=== PATIENT | male | born 1940 | race Caucasian/White ===

== ENCOUNTER 2017-11-30 11:30 | Inpatient (IN) | payer OTHER ==
[~2017-11-30] VITALS: Ht 170.2 cm; Wt 87.1 kg
[~2017-11-30 11:30] MED LIST: AMARYL2 MG PO; AMARYL4 MG PO; ASPIR 8181 M1 PO; AUGMENTIN 875875 MG PO; COREG25 MG PO; FLOMAX0.4 MG PO; FOLIC ACID1 MG PO; GLIMEPIRIDE4 MG PO; LASIX 40 MG TAB40 M2 PO; LEVAQUIN 500 M500 M2 PO; LISINOPRIL10 MG PO; METFORMIN HCL500 MG PO; OMEGA-31000 M1 PO; OXYBUTYNIN 5 MG5 M2 PO; TYLENOL325 MG PO; VITAMIN B-12500 MCG PO; XARELTO15 MG PO; ZOCOR20 MG PO; [UNRECOGNIZED DRUG - OTHER]; [UNRECOGNIZED DRUG - OTHER] MC
[2017-11-30 11:33] VITALS: BP 169/88
[2017-11-30 12:12] LABS: HEMATOCRIT 37.1 % (42.0-52.0); HEMOGLOBIN 11.9 gm/dL (14.0-18.0); MCH 30.4 pg (26.0-34.0); MCHC 32.2 g/dL (28.0-37.0); MCV 94.7 fL (80.0-100.0); MPV 7.6 fl. (7.2-11.1); NUCLEATED RBCS 0 /100WBC; PLATELET COUNT* 401 thou/uL (150-400); RBC 3.92 mil/uL (4.50-6.00); RDW-CV 13.5 % (10.5-14.5); WBC 9.4 thou/uL (4.0-11.0)
[2017-11-30 12:21] LABS: ANION GAP 11 mmol/L (7-16); BUN 28 mg/dL (7-18); CALCIUM 8.8 mg/dL (8.5-10.1); CHLORIDE 104 mmol/L (98-107); CO2 26 mmol/L (21-32); CREATININE 2.3 mg/dL (0.6-1.3); GLUCOSE 338 mg/dL (70-99); POTASSIUM 3.6 mmol/L (3.5-5.1); SODIUM 141 mmol/L (136-145)
[2017-11-30 12:31] LABS: ALBUMIN 2.3 g/dL (3.4-5.0); ALKALINE PHOSPHATASE 84 U/L (46-116); SGOT 15 U/L (15-37); SGPT 18 U/L (30-65); TOTAL BILIRUBIN 0.5 mg/dL (<0.1-1.0); TOTAL PROTEIN 7.1 g/dL (6.4-8.2); TROPONIN-I LEVEL <0.06 ng/mL (<0.06)
[2017-11-30 12:33] LABS: ABSOLUTE EOSINOPHILS 0.2 thou/uL (0.0-0.7); ABSOLUTE LYMPHOCYTES 1.1 thou/uL (0.8-5.3); ABSOLUTE MONOCYTES 0.3 thou/uL (0.0-1.2); ABSOLUTE NEUTROPHILS 7.8 thou/uL (1.6-8.1); PLATELET ESTIMATE INCREASED
[2017-11-30 12:34] LABS: ANISOCYTOSIS 1+; POIKILOCYTOSIS 1+
--- NOTE | 2017-11-30 14:47 | EKG ---
[place] [address] ELECTROCARDIOGRAM REPORT Name: TREVOR DRAKE Room: [place] [address] ADM IN .R.#: [id number] Admission: 11/30/17 Attend Phys: Bautista Reynolds MD Discharge: Date of : 38 Report #: [id number] THIS REPORT FOR: //name// [facility] ED Test Date: 2017-11-30 Test Time: 11:46:23 Pat Name: TREVOR DRAKE Department: Room: [facility] Gender: Hand Candy Cutter: Mami CARRILLO : 1940 Requested By: Jacqueline Gallardo Order Number: [id number] MD: Roger Godoy Measurements Intervals [place] Rate: 77 P: 0 CO: 37 QRS: 20 QRSD: 89 T: 74 QT: 423 QTc: 479 Interpretive Statements Atrial fibrillation Borderline prolonged QT interval Compared to ECG 09/11/2016 23:12:03 Ventricular premature complex(es) no longer present Aberrant conduction of supraventricular beat(s) no longer present ST (T wave) deviation no longer present Electronically Signed On 11-30-2017 14:47:26 AUTOMATIC MOLD SANDER by Roger Godoy [email or web address] <ELECTRONICALLY SIGNED> By: Roger Godoy MD, FACC 11/30/17 1447 1146 [id number] Roger Godoy MD, FAC /EPI
[2017-11-30 17:09] VITALS: BP 198/89
[2017-11-30 17:30] VITALS: BP 158/88
--- NOTE | 2017-11-30 21:56 | NUR ---
PT ARRIVED FROM E.D. AT 1730. PT IN BED, BED IN LOW AND LOCKED POSITION, FALL PRECAUTIONS IN PLACE. PT HIGH FALL RISK. PT BR[facility] [place]/T INCREASED ALTERED MENTAL STATUS, FORGETFULNESS, CONFUSION WITHIN THE LAST THREE DAYS. PT TALKATIVE BUT HAVING DIFFICULTY FALLOWING CONVERSATION, VERY FORGETFUL AND OCC. AGGITATED, IMPULSIVE. 4 SIDERAILS UP FOR PT SAFETY. A&O X2-3, SELF/HOSPITAL BUT FORGOT WHERE HE WAS AND THAT HIS SONS HAD BEEN THERE, THINKING HE WAS AT HOME AND WANTING HIS CAR KEYS. PERRLA, SKIN INTACT WITH SOME OLD SCABS ON RIGHT HAND, SCATTERED BRUISING, NO EDEMA. LUNGS MILD SCATTERED WHEEZES TO DIMINISHED. ABD SOFT, NON TENDER. PT COMPLETELY INCONTINENT OF URINE R/T NERVE DAMAGE TO BLADDER, NO SENSATION OF HAVING TO URINATE OR PROCESS OF URINATING. RECENT CHANGE FOR PT BEING INCONTINENT OF BOWEL. FREQUENT PAD CHANGES REQUIRED. PT UNSTEADY, WEAK, UP WITH ONE TO TWO ASSIST WITH WALKER. HX OF AFIB BUT PT PCP D/C'D ALL STATINS, BETA BLOCKERS, LASIX, BLOOD SUGAR MEDS, SEE D/C OF RECONCILED MEDS. PT ONLY TAKES AN 81 MG ASPIRIN 1X PER DAY AT THIS TIME ACCORDING TO PT AND HIS TWO SONS AND DAUGHTER IN LAW. BLOOD SUGARS UPON ENTERING ED OVER 300, LOW SLIDING SCALE INSULIN ORDERED. PT TO BE CONSIDERED FOR TELE MONITORING R/T AFIB DX. REPORT TO HAM MARKER FOR CONTINUED CARES. PT REQUIRES ALOT OF ATTENTION AND MONITORING. FAMILY WANTS TO MOVE PT TO SNF FOR INCREASED CARES, CONSULT FOR CASE MANAGEMENT MADE.
[2017-12-01 00:46] VITALS: BP 177/88
--- NOTE | 2017-12-01 03:39 | NUR ---
ASSUMED CARE @ 1955-11/30-SUNDAY.AWAKE IN BED WATCHING TV.HOB UP.IV INFUSING LEFT FOREARM.BED ALARM ON ALREADY @ 1954.URINE-FOUL SMEELING & ROOM ALSO SMELLS FOUL.INC URINE.COMPLETE BED CHANGE BY AUTOMATIC LATHE OPERATOR X1.TURNS SELF @ NIGHT.SON HERE @ 2140 & SAT W/ PATIENT UNTIL MIDNIGHT.PATIENT SLEEPING @ 2330.BEFORE SON CAME-PT CONSTANTLY WASTE/MATERIALS EXCHANGE SPECIALIST LIGHT ASKING WHERE HIS THINGS ARE.ON HOURLY ROUNDS.AUTOMATIC LATHE OPERATOR DOING ODD HOUR ROUNDS.
[2017-12-01 04:46] LABS: ABSOLUTE BASOPHILS 0.1 thou/uL (0.0-0.2); ABSOLUTE EOSINOPHILS 0.3 thou/uL (0.0-0.7); ABSOLUTE LYMPHOCYTES 1.1 thou/uL (0.8-5.3); ABSOLUTE MONOCYTES 0.6 thou/uL (0.0-1.2); ABSOLUTE NEUTROPHILS 6.8 thou/uL (1.6-8.1); BASOPHILS 0.6 %; EOSINOPHILS 3.8 %; HEMATOCRIT 31.4 % (42.0-52.0); HEMOGLOBIN 10.7 gm/dL (14.0-18.0); LYMPHOCYTES 12.8 %; MCH 31.4 pg (26.0-34.0); MCV 92.5 fL (80.0-100.0); MONOCYTES 6.9 %; MPV 7.8 fl. (7.2-11.1); NUCLEATED RBCS 0 /100WBC; PLATELET COUNT* 377 thou/uL (150-400); POLYS 75.9 %; RBC 3.39 mil/uL (4.50-6.00); RDW-CV 13.7 % (10.5-14.5); WBC 8.9 thou/uL (4.0-11.0)
[2017-12-01 04:59] LABS: CALCIUM 8.3 mg/dL (8.5-10.1); CREATININE 1.9 mg/dL (0.6-1.3); POTASSIUM 3.4 mmol/L (3.5-5.1)
--- NOTE | 2017-12-01 07:35 | NUR ---
SLEEPING SINCE 2329.AWAKENED ONLY TO CHECK IF INC.URINE.INC URINE X3.ARTURO CARE DONE X3 ALSO.URINE-FOUL ODOR.SON BACK @ 0630.TURNS SELF @ NIGHT.
[2017-12-01 08:00] VITALS: BP 174/111
[2017-12-01 16:11] LABS: URINE BILIRUBIN NEGATIVE (Negative); URINE BLOOD NEGATIVE (Negative); URINE CLARITY CLOUDY; URINE COLOR YELLOW; URINE GLUCOSE-RANDOM NEGATIVE (Negative); URINE KETONES TRACE (Negative); URINE NITRITE-REFLEX NEGATIVE (Negative); URINE PROTEIN 3+ (Negative)
[2017-12-01 16:13] LABS: URINE LEUKOCYTES-REFLEX 2+ (Negative)
[2017-12-01 16:17] LABS: AMP/METHAMP Negative (Negative); BARBITURATES Negative (Negative); BENZODIAZEPINES Negative (Negative); COCAINE Negative (Negative); METHADONE Negative (Negative); OPIATES Negative (Negative); PCP Negative (Negative); THC Negative (Negative)
[2017-12-01 16:26] LABS: BACTERIA-REFLEX >30 Many /HPF (None Seen); CASTS None Seen /LPF (None Seen); CRYSTALS None Seen /LPF (None Seen); SQUAMOUS >10 Many /LPF (0-3)
[2017-12-01 16:27] LABS: URINE RBC 0-2 Rare /HPF (0-2); URINE WBC-REFLEX >25 Many /HPF (0-5)
[2017-12-01 16:48] VITALS: BP 147/79
--- NOTE | 2017-12-01 18:53 | NUR ---
DAY 2 OF STAY. PATIENT OBSTINANT TO MOST CARES AND ASSESSMENTS, INTERMITTENTLY CONFUSED, AT TIMES DIFFICULT TO REDIRECT. DENIES DISCOMFORT, EXT. ASSIST WITH ALL ADL, BED MOBILITY, TRANSFERS. AMB W/ UNSTEADY GAIT, UNABLE TO TAKE STEPS WITHOUT SOMETHING TO HOLD ON TO. CONT TO BE INCONTINENT OF BLADDER, UNABLE TO REPORT NEED TO VOID. BM THIS SHIFT, URINE SAMPLE SENT FOR CULTURE. KODY DIET WELL, BLOOD GLUCOSE MAINTAINED WELL. EEG COMPLETED TODAY, MRI SCHED FOR 12/03, CONSULT UROLOGY FOR INCONTINENCE IN PROCESS. CALL LIGHT IN REACH, CONT POC.
[2017-12-01 20:00] VITALS: BP 150/69
[2017-12-02 04:37] LABS: ABSOLUTE BASOPHILS 0.1 thou/uL (0.0-0.2); ABSOLUTE EOSINOPHILS 0.3 thou/uL (0.0-0.7); ABSOLUTE LYMPHOCYTES 1.3 thou/uL (0.8-5.3); ABSOLUTE MONOCYTES 0.5 thou/uL (0.0-1.2); ABSOLUTE NEUTROPHILS 6.6 thou/uL (1.6-8.1); BASOPHILS 0.7 %; HEMATOCRIT 32.8 % (42.0-52.0); HEMOGLOBIN 10.9 gm/dL (14.0-18.0); LYMPHOCYTES 14.6 %; MCH 31.1 pg (26.0-34.0); MCHC 33.3 g/dL (28.0-37.0); MCV 93.4 fL (80.0-100.0); MONOCYTES 5.6 %; MPV 7.7 fl. (7.2-11.1); NUCLEATED RBCS 0 /100WBC; PLATELET COUNT* 379 thou/uL (150-400); POLYS 76.1 %; RBC 3.51 mil/uL (4.50-6.00); RDW-CV 13.5 % (10.5-14.5); WBC 8.7 thou/uL (4.0-11.0)
[2017-12-02 04:47] LABS: CALCIUM 8.1 mg/dL (8.5-10.1); POTASSIUM 3.5 mmol/L (3.5-5.1)
--- NOTE | 2017-12-02 05:14 | NUR ---
PT AWAKE ON AND OFF THIS SHIFT. ASSESSMENT DOCUMENTED. MEDS GIVEN PER E-JAN. PT CONFUSED AND AGITATED THIS SHIFT. PT REPEATEDLY CALLED 911, SON ATTEMPTED TO TAKE PHONE, PT NOT COOPERATIVE. NOTIFED, ORDERS RECIEVED. PT INCONTINENT THROUGH NIGHT. IV PATENT, FLUIDS INFUSING. WILL CONTINUE TO MONITOR.
[2017-12-02 08:00] VITALS: BP 194/82
[2017-12-02 16:12] VITALS: BP 169/88
[2017-12-02 20:00] VITALS: BP 190/83
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
[2017-12-02 23:46] VITALS: BP 186/85
[2017-12-03 04:00] VITALS: BP 187/83
[2017-12-03 04:29] LABS: ABSOLUTE EOSINOPHILS 0.3 thou/uL (0.0-0.7); ABSOLUTE LYMPHOCYTES 1.1 thou/uL (0.8-5.3); ABSOLUTE MONOCYTES 0.5 thou/uL (0.0-1.2); ABSOLUTE NEUTROPHILS 6.2 thou/uL (1.6-8.1); BASOPHILS 0.5 %; EOSINOPHILS 3.6 %; HEMATOCRIT 31.7 % (42.0-52.0); HEMOGLOBIN 11.1 gm/dL (14.0-18.0); LYMPHOCYTES 13.4 %; MCH 31.4 pg (26.0-34.0); MCHC 35.2 g/dL (28.0-37.0); MCV 89.3 fL (80.0-100.0); MONOCYTES 5.7 %; MPV 7.3 fl. (7.2-11.1); NUCLEATED RBCS 0 /100WBC; PLATELET COUNT* 360 thou/uL (150-400); POLYS 76.8 %; RBC 3.55 mil/uL (4.50-6.00); RDW-CV 13.6 % (10.5-14.5); WBC 8.1 thou/uL (4.0-11.0)
[2017-12-03 04:42] LABS: CREATININE 1.8 mg/dL (0.6-1.3); POTASSIUM 4.1 mmol/L (3.5-5.1)
--- NOTE | 2017-12-03 06:32 | NUR ---
PT SLEPT ON AND OFF THROUGH NIGHT. ASSESSMENT DOCUMENTED. MEDS GIVEN PER E-MAR. PT REPORTED NO PAIN OR NAUSEA. PT REMAINS CONFUSED AND AGITATED THIS SHIFT, REPEATEDLY CALLING FORMING PROCESS LINE WORKER, SECURITY TALKED WITH PATIENT. PT STATED UNDERSTANDING BUT CALLED FORMING PROCESS LINE WORKER AGAIN SOON SECURITY LEFT THE ROOM. BLOOD PRESSURES REMAINED ELEVATED, MEDS GIVEN PER E-MAR. IV PATENT, FLUIDS INFUSING.
[2017-12-03 08:00] VITALS: BP 161/72
--- NOTE | 2017-12-03 12:31 | NUR ---
SW met with pt's two sons to complete initial assessment, introduce self, and SW role. Pt was out of the room for testing. Pt sons reported to SW that pt was at [facility] but that the dc plan will be for pt to go to SNF at [facility]. SW to continue to follow to assist with safe dc planning.
[2017-12-03 16:00] VITALS: BP 162/69
--- NOTE | 2017-12-03 16:02 | CON ---
[address] [address] CONSULTATION Name: NOELLETREVOR ROSA Room: [address] IN .R.#: [id number] Admission: 11/30/17 Attend Phys: Bautista Reynolds MD Discharge: Date of : 38 Report #: [id number] THIS REPORT FOR: //name// CC: Bautista Espinal DO DATE OF SERVICE: 12/03/2017 HISTORY OF PRESENT ILLNESS: The patient is a 77-year-old single white male who I was asked to see in the hospital today after he was noted to be in atrial fibrillation. The history is obtained from the patient as well as his 2 sons who are present as well as some old records. According to the sons, the patient has had a history of atrial fibrillation for a long time. He apparently has seen a brass plater in the past. He was never cardioverted. He apparently was on anticoagulants in the past. He had a previous stroke years ago. He then had a TIA about 4 years ago affecting his speech. The patient currently lives in assisted living. He ambulates with a walker. Recently, he has had progressive confusion. He has had no appetite. He was finally brought to the emergency room 3 days ago. The patient was calling out, asking where he was. He had been weak. He denied any significant complaints. He was admitted for further evaluation and treatment. There is no history of myocardial infarction, chest pain, shortness of breath, palpitations, or syncope. PAST MEDICAL HISTORY: Otherwise significant for back surgery. He has a history of hypertension and diabetes. MEDICATIONS: Consists of Xarelto, Lasix, aspirin, Flomax, lisinopril, glimepiride, oxybutynin, carvedilol, and simvastatin. ALLERGIES: He has no known drug allergies. FAMILY HISTORY: His father had heart disease. SOCIAL HISTORY: He is , lives in assisted living. Smokes half pack of cigarettes a day. No alcohol abuse. REVIEW OF SYSTEMS: He has had no history of asthma, peptic ulcer disease, or liver disease. He does have chronic kidney disease. No cancer. No psychiatric illness. PHYSICAL EXAMINATION: GENERAL: Revealed an elderly male, lying in bed, he appeared in no distress. VITAL SIGNS: He had a blood pressure of 150/60, pulse is 70 and regular. He is afebrile. HEENT: He is anicteric. Conjunctivae are pink. Mucous [place] [address] CONSULTATION Name: TREVOR DRAKE Room: [address]#: [id number] Admission: 11/30/17 Attend Phys: Bautista Reynolds MD Discharge: Date of : 38 Report #: [id number] NECK: Veins nondistended. CHEST: Clear to auscultation. HEART: Irregular rhythm. ABDOMEN: Soft. EXTREMITIES: Had no edema. Dorsalis pedis pulse 1+ bilaterally. SKIN: Cool and dry. NEUROLOGIC: He is able to move all extremities. PSYCHIATRIC: His mood appeared depressed. His ECG on admission 3 days ago showed atrial fibrillation, nonspecific ST-T wave changes. On the monitor over the weekend, he remained in sinus rhythm. He did have a pause of 1.6 seconds. His workup so far, he had an echocardiogram, actually done in 2016, that showed ejection fraction of greater than 65% with mild pulmonary hypertension. He has had CT scan of the head without contrast after his admission that showed no acute abnormality. His chest x-ray showed normal heart size, clear lung julian. Previous carotid Doppler study in 2016, showed a high grade stenosis of the right carotid artery, 60-70% of the left internal carotid artery. His lab work, sodium 146, BUN 23, creatinine 1.8, and glucose 136. His liver function studies were normal. TSH 1.9. White blood cell count 8.1 and hemoglobin 11.1. IMPRESSION AND RECOMMENDATIONS: 1. Atrial fibrillation. Rate controlled with a beta liss. I would recommend decreasing the dose because of a pause. The patient has been anticoagulated with Xarelto. 2. Chronic kidney disease. 3. History of stroke with previous carotid endarterectomy. 4. Hypertension. The patient has been on an NORA inhibitor and beta liss. 5. Dementia. 6. Incontinence. <ELECTRONICALLY SIGNED> By: Tomasz Villagomez MD, [facility] 12/03/17 1602 0900 [id number] Villagomez MD, FAC /nt
--- NOTE | 2017-12-03 19:56 | NUR ---
RESUMED CARE THIS AM. ORIENTED TO SELF, SHORT TERM MEMORY VERY POOR, FREQUENTLY REORIENTED THROUGHOUT SHIFT. EXT ASSIST WITH TRANSFERS, DENIES PAIN, REQUIRES CONTINUOUS CONVERSATION WITH SOMEONE TO FEEL AT EASE. CONFUSION INCREASES DRAMATICALLY IN EVENING, PATIENT CONSTANTLY CALLING ZIPPER JOINER, DEMANDING A TAXI, DEMANDING PHONE NUMBERS TO ADMINISTRATION, STATING THAT HE HAS A CONFERENCE TOMORROW MORNING AT [facility]. VITAL SIGNS STABLE, KODY MEDS AND DIET WELL, NO BM THIS SHIFT. CALL LIGHT IN REACH, DISCHARGE PLAN IS TO ADMIT TO [facility]) WHEN CLEARED FOR DISCHARGE.
[2017-12-03 20:30] VITALS: BP 210/85
[2017-12-03 23:00] VITALS: BP 191/71
[2017-12-04 03:20] VITALS: BP 204/92
[2017-12-04 07:40] VITALS: BP 143/57
--- NOTE | 2017-12-04 09:14 | NUR ---
PT VERY AGITATED AT BEGINING OF SHIFT. PT YELLING AND THROWING PHONE FROM CHAIR INTO HALLWAY, THREATENING HARM TO OTHERS. DR NOTIFIED, ORDERS RECIEVED. AFTER MEDICATION WAS GIVEN PT SLEPT REST OF SHIFT. BLOOD PRESSURE REMAINED ELEVATED, ORDERS RECIEVED AND MEDS GIVEN PER E-MAR. ASSESSMENT DOCUEMENTED. WILL CONTINUE TO MONITOR.
[2017-12-04] MEDS ORDERED: CEFUROXIME250 MG PO (12:00)
[2017-12-04] MEDS ORDERED: PROTONIX40 M1 PO (12:00)
[2017-12-04] MEDS ORDERED: RISPERIDONE 00.25 M1 PO (12:00)
[2017-12-04 13:01] LABS: CALCIUM 8.3 mg/dL (8.5-10.1); CREATININE 2.4 mg/dL (0.6-1.3); MAGNESIUM 1.7 mg/dL (1.8-2.4); POTASSIUM 4.2 mmol/L (3.5-5.1)
[2017-12-04 14:24] VITALS: BP 143/57
--- NOTE | 2017-12-04 14:25 | NUR ---
DEWAYNE followed up with [facility] on pt dc to SNF today. [facility] accept pt and plan to picket [employer] pt at 17:00 by karthik estrella. DEWAYNE discussed plan with pt valentín. SW to fax final orders/med list to [facility].
[2017-12-04] MEDS ORDERED: AMLODIPINE BESY10 MG PO (15:02)
[2017-12-04] MEDS ORDERED: CARVEDILOL6.25 MG PO (15:02)
[2017-12-04 15:44] VITALS: BP 143/57
[2017-12-04 17:25] VITALS: BP 143/57
--- NOTE | 2017-12-04 17:26 | NUR ---
PATIENT IS BEING DISCHARGED TO SNF FACILITY. PATIENT LEFT IN STABLE CONDITION VIA WHEELCHAIR IN WHEELCHAIR VAN WITH SONS. BELONGINGS GATHERED UP AND SENT WITH FAMILY.
--- NOTE | 2017-12-05 07:27 | CON ---
[address] [address] CONSULTATION Name: TREVOR DRAKE Room: [address] IN .R.#: [id number] Admission: 11/30/17 Attend Phys: Bautista Reynolds MD Discharge: 12/04/17 Date of : 38 Report #: [id number] THIS REPORT FOR: //name// CC: Bautista Espinal DATE OF SERVICE: 12/01/2017 HISTORY OF PRESENT ILLNESS: This is a 77-year-old male patient who was admitted with progressively deteriorating confusion. This patient apparently has some short-term memory problem for a long time. Since [place], his mentation has deteriorated and in fact it has improved some after he was admitted to the hospital presumably with hydration. Family indicates that he is at least moderately confused. He was living independently until about a year and a half ago, he was living in a duplex when he shifted to independent living. He may need more help. He does not know anything, which makes his confusion better or worse. He had no associated head trauma. REVIEW OF SYSTEMS: Indicate that this patient was seen by Dr. Sosa during the patient's admission in 2015. At that time, this patient had shown old strokes and B12 deficiency. At one time, this patient also had hypoglycemia. Record indicates that he also has history of spinal stenosis and difficulty with ambulation. This patient has not driven for a long time. He does have a history of stroke 10-15 years ago. He had some left-sided weakness at that time. He is on Xarelto and that is apparently secondary to atrial fibrillations, which caused his strokes. This was the patient's relevant 14-point review of systems. PAST MEDICAL HISTORY: Positive for frequent falls. He also has a history of neuropathy. FAMILY HISTORY: Negative for early age stroke. SOCIAL HISTORY: Lives in independent living at the moment. PHYSICAL EXAMINATION: Indicates he is alert. He does not know what month it is, but knows what hospital he is in. His speech looks intact. He was able to name the president, but not the one before. Cranial nerve examination 2-12 is unremarkable. He moves all 4 extremities and able to appreciate the pinprick. He does not have any cerebellar sign. He could not cooperate with the fundus examination. He is otherwise a well-built individual who does not have any dysmorphic features of eyes, ears and face. His pulses are somewhat difficult to feel. His heart examination does not appear to show any murmur. No respiratory difficulty or rhonchi was noticed. His blood pressure is 174/111, respirations 14, pulse is 82, temperature is 98.4. [place] [address] CONSULTATION Name: TREVOR DRAKE Room: [address]#: [id number] Admission: 11/30/17 Attend Phys: Bautista Reynolds MD Discharge: 12/04/17 Date of : 38 Report #: [id number] LABORATORY DATA: Indicate a WBC of 8.9. His potassium was at trace low. His GFR is only 34. He did have a CT scan of the head done and that showed old pathology, but nothing new. IMPRESSION: 1. This patient most likely has underlying dementia. 2. He probably got decompensated secondary to encephalopathy. 3. Other etiologies need to be excluded. 4. At one time, he was diagnosed with B12 deficiency and we will check it again. RECOMMENDATIONS: 1. EEG. 2. Repeat MRI. 3. Repeat vitamin B12. 4. See how he does with all this. He has already improved. I think he will need a different arrangement for living. Thank you very much for this referral. <ELECTRONICALLY SIGNED> By: Junior Moss MD 12/05/17 0727 1351 [id number] Moss MD /nt
--- NOTE | 2017-12-05 07:27 | EEG ---
[address] [address] EEG STUDY REPORT Name: TREVOR DRAKE Room: [address]#: [id number] Admission: 11/30/17 Attend Phys: Bautista Reynolds MD Discharge: 12/04/17 Date of : 38 Report #: [id number] THIS REPORT FOR: //name// CC: Bautista Verdugo Espinal DATE OF SERVICE: 12/01/2017 This patient is being evaluated for altered mental status. The EEG was done by placing the electrodes by standard 10-20 system of electrode placement. Both referential and sequential montages were used for recording. Background activity in this patient's EEG appeared to be about 5-6 Hz and 30 microvolt. This is a symmetrical activity. The patient went to sleep that is associated with bilateral slowing and vertex sharp waves. Throughout the record, no active epileptiform activity was noticed. IMPRESSION: This is an abnormal EEG because it is disorganized and poorly formed. That is a nonspecific abnormality, which can occur with encephalopathy, effect of psychotropic medication, dementia, etc. Clinical correlation is recommended. <ELECTRONICALLY SIGNED> By: Junior Moss MD 12/05/17 0727 0614 [id number] Moss MD /nt
--- NOTE | 2017-12-05 16:56 | NUR ---
PT. DISCHARGED TO SNF PRIOR TO O.T. EVAL. PLEASE ORDER FURTHER O.T. SERVICES IF NEEDED.
== END 2017-12-04 17:20 | DRG 682 ==
LOC: M.ERS 11:30 → M.3W 12:48 → M.TBA-ER 12:48 → M.3W 17:33
PROVIDERS: Internal Medicine; Physician Assistant; ADMIT Internal Medicine
DX: N17.9 Acute kidney failure, unspecified (principal); G93.41 Metabolic encephalopathy; F03.91 Unspecified dementia, unspecified severity, with behavioral disturbance; I12.0 Hypertensive chronic kidney disease with stage 5 chronic kidney disease or end stage renal disease; R32 Unspecified urinary incontinence; E11.40 Type 2 diabetes mellitus with diabetic neuropathy, unspecified; E11.65 Type 2 diabetes mellitus with hyperglycemia; E53.8 Deficiency of other specified B group vitamins; I48.91 Unspecified atrial fibrillation; F17.210 Nicotine dependence, cigarettes, uncomplicated; E11.22 Type 2 diabetes mellitus with diabetic chronic kidney disease; N18.9 Chronic kidney disease, unspecified; E78.00 Pure hypercholesterolemia, unspecified; M47.9 Spondylosis, unspecified; N40.1 Benign prostatic hyperplasia with lower urinary tract symptoms; E86.0 Dehydration; Z79.82 Long term (current) use of aspirin; Z79.4 Long term (current) use of insulin; Z82.49 Family history of ischemic heart disease and other diseases of the circulatory system; Z86.73 Personal history of transient ischemic attack (TIA), and cerebral infarction without residual deficits; Z79.899 Other long term (current) drug therapy; Z83.3 Family history of diabetes mellitus